=== PATIENT | male | born 1940 | race Caucasian/White ===

== ENCOUNTER → 2016-04-29 | Outpatient (CLI) | payer MEDICARE, BC | LOC: LAB 12:19 | DX: R51 Headache (principal) ==

== ENCOUNTER → 2016-09-23 | Outpatient (CLI) | payer MEDICARE, BC | LOC: LAB 08:33 | DX: E78.00 Pure hypercholesterolemia, unspecified (principal) ==

== ENCOUNTER → 2016-10-08 | Outpatient (CLI) | payer MEDICARE, BC | LOC: RAD 11:34 | DX: Z13.820 Encounter for screening for osteoporosis (principal); M25.551 Pain in right hip; M16.11 Unilateral primary osteoarthritis, right hip ==

== ENCOUNTER → 2017-05-20 | Outpatient (CLI) | payer MEDICARE, BC | LOC: LAB 12:40 | DX: G44.029 Chronic cluster headache, not intractable (principal); G47.30 Sleep apnea, unspecified; Z88.8 Allergy status to other drugs, medicaments and biological substances; Z91.041 Radiographic dye allergy status ==

== ENCOUNTER → 2019-02-08 | Outpatient (CLI) | payer MEDICARE, BC ==
[2019-02-08 07:24] LABS: HEMATOCRIT 43.4 % (42.0-52.0); HEMOGLOBIN 14.1 g/dL (13.5-18.0); MEAN PLATELET VOLUME 10.5 fl (7.4-10.4); RED BLOOD COUNT 4.76 M/mm3 (4.20-5.60); RED CELL DISTRIBUTION WIDTH 14.1 % (11.5-14.5); WHITE BLOOD COUNT 5.6 K/mm3 (4.8-10.8)
[2019-02-08 07:34] LABS: ALBUMIN 3.8 g/dL (3.4-4.8); POTASSIUM 4.2 mmol/L (3.5-5.1)
[2019-02-08 07:35] LABS: CALCIUM 9.6 mg/dL (8.3-10.5)
[2019-02-08 07:37] LABS: TOTAL PROTEIN 6.5 g/dL (6.2-8.1)
[2019-02-08 07:39] LABS: TOTAL BILIRUBIN 0.6 mg/dL (0.2-1.2)
== END ==
LOC: LAB 07:09
PROVIDERS: Family Medicine
DX: I48.91 Unspecified atrial fibrillation (principal); K21.9 Gastro-esophageal reflux disease without esophagitis; E78.00 Pure hypercholesterolemia, unspecified; N40.1 Benign prostatic hyperplasia with lower urinary tract symptoms

== ENCOUNTER → 2020-02-21 | Outpatient (CLI) | payer MEDICARE, BC ==
[2020-02-21 08:51] LABS: POTASSIUM 4.4 mmol/L (3.5-5.1)
[2020-02-21 08:53] LABS: CALCIUM 9.4 mg/dL (8.3-10.5)
[2020-02-21 08:54] LABS: TOTAL PROTEIN 6.9 g/dL (6.2-8.1)
[2020-02-21 08:56] LABS: TOTAL BILIRUBIN 0.5 mg/dL (0.2-1.2)
== END ==
LOC: LAB 08:07
PROVIDERS: Family Medicine
DX: E78.00 Pure hypercholesterolemia, unspecified (principal)

== ENCOUNTER → 2020-07-26 | Outpatient (CLI) | payer MEDICARE, BC | LOC: RAD 09:19 | DX: N28.89 Other specified disorders of kidney and ureter (principal); R31.0 Gross hematuria ==

== ENCOUNTER → 2020-12-17 | Outpatient (REF) ==
[2020-12-17 12:23] LABS: POTASSIUM 4.4 mmol/L (3.5-5.1)
[2020-12-17 12:25] LABS: CALCIUM 9.4 mg/dL (8.3-10.5)
== END ==
LOC: LAB 09:57
PROVIDERS: Internal Medicine Cardiovascular Disease
DX: Z01.89 Encounter for other specified special examinations (principal)

== ENCOUNTER → 2021-04-11 | Outpatient (CLI) | payer MEDICARE, BC ==
[2021-04-11 08:18] LABS: POTASSIUM 4.6 mmol/L (3.5-5.1)
[2021-04-11 08:19] LABS: ALBUMIN 3.9 g/dL (3.4-4.8)
[2021-04-11 08:20] LABS: CALCIUM 9.7 mg/dL (8.3-10.5)
[2021-04-11 08:21] LABS: TOTAL PROTEIN 6.7 g/dL (6.2-8.1)
[2021-04-11 08:23] LABS: TOTAL BILIRUBIN 0.6 mg/dL (0.2-1.2)
== END ==
LOC: LAB 07:50 → EDSTATUS 07:53
PROVIDERS: Family Medicine
DX: E78.00 Pure hypercholesterolemia, unspecified (principal)

== ENCOUNTER → 2022-05-01 | Outpatient (CLI) | payer MEDICARE, BC ==
[2022-05-01 09:11] LABS: ALBUMIN 4.1 g/dL (3.4-4.8); POTASSIUM 4.8 mmol/L (3.5-5.1)
[2022-05-01 09:12] LABS: CALCIUM 9.9 mg/dL (8.3-10.5)
[2022-05-01 09:14] LABS: TOTAL PROTEIN 6.5 g/dL (6.2-8.1)
[2022-05-01 09:15] LABS: TOTAL BILIRUBIN 0.6 mg/dL (0.2-1.2)
== END ==
LOC: LAB 08:19
PROVIDERS: Family Medicine
DX: E78.00 Pure hypercholesterolemia, unspecified (principal)

== ENCOUNTER → 2024-01-21 | Outpatient (CLI) | payer MEDICARE, BC | LOC: RAD 09:34 | PROVIDERS: Family Medicine | DX: M54.59 Other low back pain (principal); I48.0 Paroxysmal atrial fibrillation ==

== ENCOUNTER → 2024-02-14 | Outpatient (CLI) | payer MEDICARE, BC ==
[2024-02-14 10:16] LABS: CALCIUM 9.3 mg/dL (8.3-10.5)
== END ==
LOC: LAB 09:44
PROVIDERS: Family Medicine
DX: E87.1 Hypo-osmolality and hyponatremia (principal)